=== PATIENT | female | born 1955 | race Caucasian/White ===

== ENCOUNTER 2020-09-25 13:34 | Emergency (ER) | payer MEDICAID ==
[2020-09-25 14:47] VITALS: BP 184/92; PULSE 63
--- NOTE | 2020-09-25 15:38 | EDM.PDOC ---
ED HPI GENERAL MEDICAL PROBLEM - General Chief Complaint: Back Pain or Injury Stated Complaint: BACK PAIN THAT WRAPS AROUND FRONT FOR 3 DAYS Time Seen by Provider: 09/25/20 14:44 Source of Information: Reports: Patient, RN Notes Reviewed History Limitations: Reports: No Limitations - History of Present Illness INITIAL COMMENTS - FREE TEXT/NARRATIVE: 65-year-old female presents emergency department day complaint of mid back pain on her left side she states it started a couple days ago she has not been feeling well in general no fevers no nausea vomiting no difficulty with ur ination Right Flank Pain Score (Numeric/FACES): 6 - Related Data Allergies Allergy/AdvReac Type Severity Reaction Status Date / Time No Known Allergies Allergy Verified 09/25/20 15:16 Home Meds: Home Meds Metoprolol Succinate [Toprol XL 100mg] 100 mg PO DAILY 12/26/13 [History] Cholecalciferol (Vitamin D3) [Vitamin D] 2,000 unit PO DAILY 06/22/15 [History] Docusate Sodium [DOK] 100 mg PO DAILY 06/22/15 [History] Levothyroxine [Synthroid] 88 mcg PO ACBREAKFAST 06/22/15 [History] Lisinopril/Hydrochlorothiazide [Lisinopril-Hctz 20-25 mg Tab] 2 tab PO DAILY 06/22/15 [History] cloNIDine [Catapres] 0.1 mg PO BID 06/22/15 [History] Dulaglutide [Trulicity] 1.5 mg SUBCUT Q7D 09/12/15 [History] Aspirin [Halfprin] 81 mg PO DAILY 09/25/20 [History] Insulin Glargine,Hum.Rec.Anlog [Toujeo Solostar] 60 unit SQ DAILY 09/25/20 [History] Levothyroxine Sodium [Euthyrox] 100 mcg PO DAILY 09/25/20 [History] Liraglutide [Victoza 3-Raymundo] 1.8 mg SQ DAILY 09/25/20 [History] Sulfamethoxazole/Trimethoprim [Bactrim Ds Tablet] 1 each PO BID #28 tablet 09/25/20 [Rx] amLODIPine Besylate [Amlodipine Besylate] 5 mg PO DAILY 09/25/20 [History] atorvaSTATin [Lipitor] 40 mg PO BEDTIME 09/25/20 [History] metFORMIN [Glucophage XR] 500 mg PO BIDMEALS 09/25/20 [History] Past Medical History Cardiovascular History: Reports: CAD, High Cholesterol, Hypertension, [place] Gastrointestinal History: Reports: Other (See Below) Other Gastrointestinal History: blood in stool [employer] History: Reports: Endocrine/Metabolic History: Reports: Diabetes, Type II, Hypothyroidism, IDDM, Obesity/BMI 30+, Vitamin D Deficiency Dermatologic History: Reports: Psoriasis - Past Surgical History Cardiovascular Surgical History: Reports: None GI Surgical History: Reports: None Dermatological Surgical History: Reports: None Social & Family History - Tobacco Use Tobacco Use Status *Q: Former Tobacco User Used Tobacco, but Quit: Yes Month/Year Tobacco Last Used: 14 years ED ROS GENERAL - Review of Systems Review Of Systems: See Below Constitutional: Denies: Fever, Chills Respiratory: Reports: No Symptoms Cardiovascular: Reports: No Symptoms GI/Abdominal: Reports: No Symptoms Musculoskeletal: Reports: Back Pain ED EXAM, RENAL/ - Physical Exam Exam: See Below Exam Limited By: No Limitations General Appearance: Alert, WD/WN, No Apparent Distress Respiratory/Chest: No Respiratory Distress, Lungs Clear, Normal Breath Sounds, No Accessory Muscle Use, Chest Non-Tender Cardiovascular: Regular Rate, Rhythm, No Murmur GI/Abdominal: Soft, Non-Tender Back Exam: Normal Inspection, Full Range of Motion, CVA Tenderness (L). No: CVA Tenderness (R), Paraspinal Tenderness, Vertebral Tenderness Course - Vital Signs Last Recorded V/S: Last Vital Signs Temp 97.3 F 09/25/20 15:14 Pulse 63 09/25/20 15:14 Resp 18 09/25/20 15:14 BP 184/92 H 09/25/20 15:14 Pulse Ox 98 09/25/20 15:14 - Orders/Labs/Meds Labs: Laboratory Tests 09/25/20 Range/Units 15:11 Urine Color Yellow (YELLOW) Urine Appearance Clear (CLEAR) Urine pH 5.0 (5.0-8.0) Ur Specific [place] 1.020 (1.008-1.030) Urine Protein 30 H (NEGATIVE) mg/dL Urine Glucose (UA) 500 H (NEGATIVE) mg/dL Urine Ketones Negative (NEGATIVE) mg/dL Urine Occult Blood Trace-intact H (NEGATIVE) Urine Nitrite Positive H (NEGATIVE) Urine Bilirubin Negative (NEGATIVE) Urine Urobilinogen 0.2 (0.2-1.0) EU/dL Ur Leukocyte Esterase Trace H (NEGATIVE) Urine RBC 0-5 (0-5) Urine WBC 5-10 H (0-5) Ur Epithelial Cells Occasional Amorphous Sediment Occasional Urine Bacteria Moderate Urine Mucus Occasional Urine Other See note Departure - Departure Time of Disposition: 15:37 Disposition: Home, Self-Care 01 Condition: Fair Clinical Impression: Pyelonephritis - Discharge Information Prescriptions: Sulfamethoxazole/Trimethoprim [Bactrim Ds Tablet] 1 each PO BID #28 tablet Instructions: Pyelonephritis, Adult, [id number] Referrals: PCP,None [Primary Care Provider] - Additional Instructions: Full course of antibiotics, your antibiotics have been faxed to [facility] in [place], please followup with your primary care provider in 3-5 days if not better, please call return to the emergency department with worsening of symptoms. Sepsis Event Note (ED) - Evaluation Sepsis Screening Result: No Definite Risk - Focused Exam Vital Signs: Vital Signs Temp Pulse Resp BP Pulse Ox 09/25/20 15:14 97.3 F 63 18 184/92 H 98 09/25/20 14:45 97.3 F 63 18 184/92 H 98 - Assessment/Plan Plan: Assessment Acuity = acute Site and laterality = urinary tract infection suspicious for underlying pyelonephritis Etiology = probable bacterial cause Manifestations = none Location of injury = Home Lab values = urinalysis reveals positive nitrates 5-10 WBCs consistent with pyuria Plan Elected to treat empirically Bactrim DS 1 tab p.o. twice daily x10 [id number] primary care in 3 to 5 days This note was dictated using [employer] voice recognition software please call with any questions on syntax or grammar.
== END 2020-09-25 15:48 | disposition home or self-care (01) ==
LOC: JP.ED 13:34
DX: N12 Tubulo-interstitial nephritis, not specified as acute or chronic (principal); I25.10 Atherosclerotic heart disease of native coronary artery without angina pectoris; E78.00 Pure hypercholesterolemia, unspecified; I10 Essential (primary) hypertension; I25.2 Old myocardial infarction; E11.9 Type 2 diabetes mellitus without complications; E66.9 Obesity, unspecified; Z68.30 Body mass index [BMI] 30.0-30.9, adult; Z79.82 Long term (current) use of aspirin; Z79.4 Long term (current) use of insulin
CPT/HCPCS: 81001; 87086; 87088; 87186; 99283; 99284

== ENCOUNTER 2022-07-19 15:37 | Emergency (ER) | payer MEDICAID ==
[2022-07-19] MEDS ORDERED: Sodium Chloride 0.9% 10 ML Syringe FLUSH PRN (15:39)
[2022-07-19] MEDS ORDERED: Sodium Chloride 0.9% 1,000 ML IV ONE ×2 (15:40→17:32)
[2022-07-19 16:14] LABS: ESTIMATED GFR 23 mL/min (>60)
[2022-07-19] MEDS ORDERED: Potassium Chloride 20 MEQ Tab.ER PO ONE (16:17)
[2022-07-19] MEDS ORDERED: amLODIPine 5 MG Tab PO ONE (16:20)
[2022-07-19] MEDS ORDERED: Potassium Chloride 100 ML ONE (16:30)
[2022-07-19] MEDS ORDERED: Potassium Chloride 10 MEQ in Premix Bag 1 BAG IV SCH (17:00)
[2022-07-19 17:31] LABS: CORONAVIRUS COVID-19 NAA NEGATIVE (NEGATIVE)
[2022-07-19 17:38] VITALS: BP 145/62; PULSE 54
== END 2022-07-19 18:54 | disposition home or self-care (01) ==
LOC: JP.ED 15:37
DX: E11.65 Type 2 diabetes mellitus with hyperglycemia (principal); E11.42 Type 2 diabetes mellitus with diabetic polyneuropathy; E87.6 Hypokalemia; I10 Essential (primary) hypertension; N17.9 Acute kidney failure, unspecified; I25.10 Atherosclerotic heart disease of native coronary artery without angina pectoris; I25.2 Old myocardial infarction; E78.00 Pure hypercholesterolemia, unspecified; E03.9 Hypothyroidism, unspecified; E66.9 Obesity, unspecified; Z68.41 Body mass index [BMI] 40.0-44.9, adult; Z79.82 Long term (current) use of aspirin; Z79.84 Long term (current) use of oral hypoglycemic drugs; Z79.899 Other long term (current) drug therapy; Z20.822 Contact with and (suspected) exposure to COVID-19
CPT/HCPCS: 0241U; 36415; 80053; 82009; 82800; 82947; 83605; 83735; 85025; 93005; 96361; 96365; 99285; A9270; J3480; J3490; J7030

== ENCOUNTER 2022-08-19 14:22 | Inpatient (IN) | payer MEDICAID ==
[2022-08-19] MEDS ORDERED: Sodium Chloride 0.9% 1,000 ML IV SCH ×4 (14:30→20:23)
[2022-08-19 14:38] LABS: BASOPHILS ABSOLUTE AUTO 0.05 K/uL (0.00-0.10); BASOPHILS PERCENT AUTO 0.4 % (0.1-1.3); EOSINOPHILS PERCENT AUTO 0.1 % (0.0-5.4); HEMATOCRIT 52.5 % (34.3-46.0); HEMOGLOBIN 17.2 g/dL (11.2-15.5); IMMATURE GRAN ABSOLUTE AUTO 0.09 K/uL (0.00-0.23); IMMATURE GRAN PERCENT AUTO 0.7 % (0.0-0.7); LYMPHOCYTES ABSOLUTE AUTO 1.49 K/uL (0.8-3.3); MEAN CORPUSCULAR HEMOGLOBIN 27.7 pg (31.6-35.5); MEAN CORPUSCULAR HGB CONC 32.8 g/dL (31.6-35.5); MEAN CORPUSCULAR VOLUME 84.4 fL (81.4-99.0); MONOCYTES ABSOLUTE AUTO 0.58 K/uL (0.20-0.90); MONOCYTES PERCENT AUTO 4.7 % (3.3-12.6); NEUTROPHILS ABSOLUTE AUTO 10.22 K/uL (1.0-7.6); NEUTROPHILS PERCENT AUTO 82.1 % (40.0-78.1); PLATELET COUNT,PLT 313 K/uL (130-375); RED BLOOD CELL COUNT 6.22 M/uL (3.77-5.24); WHITE BLOOD CELL COUNT,WBC 12.4 K/uL (3.2-11.0)
[2022-08-19 14:47] LABS: EOSINOPHILS ABSOLUTE AUTO 0.01 K/uL (0.00-0.40)
[2022-08-19 15:00] LABS: A/G RATIO 0.6 (1.2-2.2); ALANINE AMINOTRANSFERASE,ALT 16 U/L (12-78); ALBUMIN 3.1 g/dL (3.4-5.0); ALKALINE PHOSPHATASE 108 U/L (46-116); ASPARTATE AMNIOTRANSFERASE,AST 17 U/L (15-37); BILIRUBIN TOTAL 1.1 mg/dL (0.2-1.0); BLOOD UREA NITROGEN,BUN 33 mg/dL (7-18); CALCIUM 9.6 mg/dL (8.5-10.1); CARBON DIOXIDE,CO2 31 mmol/L (21-32); CHLORIDE,CL 90 mmol/L (100-108); CREATININE 2.2 mg/dL (0.6-1.0); EST CRCL DRUG DOSING (CG) 20.43 mL/min; ESTIMATED GFR 24 mL/min (>60); POTASSIUM,K 3.6 mmol/L (3.6-5.2); PROTEIN TOTAL,TP 8.2 g/dL (6.4-8.2); SODIUM,NA 132 mmol/L (140-148)
[2022-08-19 15:01] LABS: ANION GAP 14.6 mmol/L (5.0-14.0)
[2022-08-19] MEDS ORDERED: Ondansetron 4 MG/2 ML SDV IVPUSH ONE ×2 (15:01→18:03)
[2022-08-19 15:02] LABS: GLUCOSE RANDOM 450 mg/dL (74-106)
[2022-08-19 15:39] LABS: APPEARANCE,URINE TURBID (CLEAR); BILIRUBIN,URINE NEGATIVE (NEGATIVE); COLOR,URINE YELLOW (YELLOW); GLUCOSE,URINE 500 mg/dL (NEGATIVE); KETONES,URINE TRACE mg/dL (NEGATIVE); LEUKOCYTE ESTERASE,URINE SMALL (NEGATIVE); NITRITE,URINE POSITIVE (NEGATIVE); OCCULT BLOOD,URINE SMALL (NEGATIVE); PROTEIN,URINE >=300 mg/dL (NEGATIVE); UROBILINOGEN,URINE 0.2 EU/dL (0.2-1.0)
[2022-08-19] MEDS ORDERED: Insulin NPH HUM/REG Insulin HM 100 UNIT/ML 3 ML Vial SQ ONE (15:44)
[2022-08-19] MEDS ORDERED: Glucagon,Human Recombinant 1 MG Vial IM PRN (15:44)
[2022-08-19] MEDS ORDERED: 50% Dextrose in Water 50 ML Syringe IVPUSH PRN (15:44)
[2022-08-19 15:46] LABS: RBC,URINE 0-5 (0-5); WBC,URINE PACKED (0-5)
[2022-08-19 15:47] LABS: BACTERIA,URINE MANY
[2022-08-19] MEDS ORDERED: Acetaminophen 325 MG Tab PO ONE (15:47)
[2022-08-19 15:48] LABS: EPITHELIAL CELLS,URINE FEW; MUCUS,URINE RARE
[2022-08-19] MEDS ORDERED: cefTRIAXone 2 GM in Sodium Chloride 0.9% 50 ML IV ONE (15:54)
[2022-08-19] MEDS ORDERED: amLODIPine 5 MG Tab PO ONE (15:58)
[2022-08-19] MEDS ORDERED: Metoprolol Tartrate 50 MG Tab PO ONE (15:58)
[2022-08-19 16:14] LABS: LACTIC ACID 4.2 mmol/L (0.4-2.0)
[2022-08-19] MEDS ORDERED: Ondansetron 4 MG/2 ML SDV IV PRN (20:23)
[2022-08-19] MEDS ORDERED: Enoxaparin 40 MG/0.4 ML Syringe SUBCUT SCH (20:23)
[2022-08-19] MEDS ORDERED: Ondansetron 4 MG Tab.DIS PO PRN (20:23)
[2022-08-19] MEDS ORDERED: Melatonin 3 MG Tab PO PRN (20:23)
[2022-08-19] MEDS ORDERED: Magnesium Hydroxide 400 MG/5 ML Susp 30 ML Cup PO PRN (20:23)
[2022-08-19] MEDS: Enoxaparin 30 MG/0.3 ML Syringe SUBCUT SCH (21:03)
[2022-08-19] MEDS: Insulin Lispro 100 Unit/ML 3 ML KwikPen SUBCUT SCH (21:06)
[2022-08-19] MEDS: Lactobacillus Rhamnosus GG (Probiotic) Cap PO SCH (21:11)
[2022-08-19] MEDS ORDERED: Non-Formulary Medication 1 Each (Metformin [Glucophage Xr] 500 MG Tab.Er) PO SCH (21:30)
[2022-08-19] MEDS ORDERED: Metoclopramide 10 MG/2 ML SDV IVPUSH PRN (21:51)
[2022-08-19] MEDS: Insulin Glargine,Human Rec. Analog 100 Units/ML 3 ML Pen SUBCUT SCH (22:21)
[2022-08-19] MEDS: cloNIDine 0.1 MG Tab PO SCH (23:33)
[2022-08-20 05:21] LABS: HEMATOCRIT 43.5 % (34.3-46.0); HEMOGLOBIN 14.4 g/dL (11.2-15.5); MEAN CORPUSCULAR HEMOGLOBIN 27.8 pg (31.6-35.5); MEAN CORPUSCULAR HGB CONC 33.1 g/dL (31.6-35.5); RED BLOOD CELL COUNT 5.18 M/uL (3.77-5.24); WHITE BLOOD CELL COUNT,WBC 11.1 K/uL (3.2-11.0)
[2022-08-20 05:38] LABS: CALCIUM 8.8 mg/dL (8.5-10.1); CREATININE 1.6 mg/dL (0.6-1.0); EST CRCL DRUG DOSING (CG) 28.09 mL/min
[2022-08-20 05:52] LABS: ANION GAP 8.7 mmol/L (5.0-14.0); POTASSIUM,K 2.7 mmol/L (3.6-5.2)
[2022-08-20] MEDS ORDERED: Potassium Chloride 20 MEQ Tab.ER PO ONE (05:57)
[2022-08-20] MEDS ORDERED: Potassium Chloride 10 MEQ in Premix Bag 3 BAG IV ONE (05:57)
[2022-08-20] MEDS: Magnesium Sulfate/Water 2 GM in Premix Bag 1 BAG IV SCH ×2 (06:34→13:33)
[2022-08-20] MEDS: Potassium Chloride 10 MEQ in Premix Bag 1 BAG IV SCH ×3 (06:43→09:17)
[2022-08-20] MEDS: Acetaminophen 325 MG Tab PO PRN ×2 (06:50→21:37)
[2022-08-20] MEDS: Insulin Lispro 100 Unit/ML 3 ML KwikPen SUBCUT SCH ×4 (07:30→21:35)
[2022-08-20] MEDS: Levothyroxine 25 MCG Tab PO SCH (07:53)
[2022-08-20] MEDS: Levothyroxine 100 MCG Tab PO SCH (07:53)
[2022-08-20] MEDS ORDERED: Levothyroxine 100 MCG Tab PO SCH (09:00)
[2022-08-20] MEDS ORDERED: Lisinopril 20 MG Tab PO SCH (09:00)
[2022-08-20] MEDS: Docusate Sodium 100 MG Cap PO SCH (09:30)
[2022-08-20] MEDS: cloNIDine 0.1 MG Tab PO SCH ×2 (09:30→21:35)
[2022-08-20] MEDS: amLODIPine 5 MG Tab PO SCH (09:31)
[2022-08-20] MEDS: Hydrochlorothiazide 25 MG Tab PO SCH (09:31)
[2022-08-20] MEDS: Lactobacillus Rhamnosus GG (Probiotic) Cap PO SCH ×2 (09:31→21:38)
[2022-08-20] MEDS: Aspirin 81 MG Tab.EC PO SCH (09:31)
[2022-08-20] MEDS: Metoprolol Succinate 50 MG Tab.ER PO SCH (09:32)
[2022-08-20] MEDS ORDERED: cefTRIAXone 1 GM in Sodium Chloride 0.9% 50 ML IV SCH (16:00)
[2022-08-20] MEDS ORDERED: atorvaSTATin 20 MG Tab PO SCH (21:00)
[2022-08-20] MEDS: Insulin Glargine,Human Rec. Analog 100 Units/ML 3 ML Pen SUBCUT SCH (21:34)
[2022-08-20] MEDS: Enoxaparin 30 MG/0.3 ML Syringe SUBCUT SCH (21:35)
[2022-08-21 04:19] LABS: HEMATOCRIT 39.4 % (34.3-46.0); HEMOGLOBIN 13.3 g/dL (11.2-15.5); MEAN CORPUSCULAR HEMOGLOBIN 27.8 pg (31.6-35.5); MEAN CORPUSCULAR HGB CONC 33.8 g/dL (31.6-35.5); MEAN CORPUSCULAR VOLUME 82.3 fL (81.4-99.0); RED BLOOD CELL COUNT 4.79 M/uL (3.77-5.24); WHITE BLOOD CELL COUNT,WBC 8.5 K/uL (3.2-11.0)
[2022-08-21 04:36] LABS: CALCIUM 8.5 mg/dL (8.5-10.1); CREATININE 1.5 mg/dL (0.6-1.0); EST CRCL DRUG DOSING (CG) 29.97 mL/min; POTASSIUM,K 3.3 mmol/L (3.6-5.2)
[2022-08-21 05:21] LABS: ANION GAP 11.3 mmol/L (5.0-14.0)
[2022-08-21] MEDS: Acetaminophen 325 MG Tab PO PRN (07:28)
[2022-08-21] MEDS: Levothyroxine 25 MCG Tab PO SCH (07:29)
[2022-08-21] MEDS: Levothyroxine 100 MCG Tab PO SCH (07:29)
[2022-08-21] MEDS: Insulin Lispro 100 Unit/ML 3 ML KwikPen SUBCUT SCH ×2 (07:31→11:44)
[2022-08-21] MEDS ORDERED: metFORMIN 500 MG Tab PO SCH (08:00)
[2022-08-21] MEDS ORDERED: Lisinopril 20 MG Tab PO SCH (09:00)
[2022-08-21] MEDS ORDERED: Potassium Chloride 20 MEQ Tab.ER PO ONE (09:30)
[2022-08-21] MEDS: cloNIDine 0.1 MG Tab PO SCH (09:38)
[2022-08-21] MEDS: Lactobacillus Rhamnosus GG (Probiotic) Cap PO SCH (09:39)
[2022-08-21] MEDS: Docusate Sodium 100 MG Cap PO SCH (09:39)
[2022-08-21] MEDS: Aspirin 81 MG Tab.EC PO SCH (09:39)
[2022-08-21] MEDS: Hydrochlorothiazide 25 MG Tab PO SCH (09:40)
[2022-08-21] MEDS: amLODIPine 5 MG Tab PO SCH (09:40)
[2022-08-21] MEDS: Metoprolol Succinate 50 MG Tab.ER PO SCH (09:40)
[2022-08-21 10:39] VITALS: BP 164/71; PULSE 62
[2022-08-25] MEDS ORDERED: Liraglutide (rDNA Origin) 0.6 MG/0.1 ML 3 ML Pen SUBCUT SCH (09:00)
== END 2022-08-21 14:20 | disposition home health service (06) | DRG 638 ==
LOC: JP.ED 14:22 → JP.MS 19:41
PROVIDERS: ADMIT Hospitalist; ATTEND Internal Medicine
DX: E11.65 Type 2 diabetes mellitus with hyperglycemia (principal); N17.9 Acute kidney failure, unspecified; N30.00 Acute cystitis without hematuria; N18.32 Chronic kidney disease, stage 3b; E11.22 Type 2 diabetes mellitus with diabetic chronic kidney disease; B96.20 Unspecified Escherichia coli [E. coli] as the cause of diseases classified elsewhere; Z91.148 Patient's other noncompliance with medication regimen for other reason; Z20.822 Contact with and (suspected) exposure to COVID-19; E87.6 Hypokalemia; Z79.82 Long term (current) use of aspirin; Z79.4 Long term (current) use of insulin; Z79.899 Other long term (current) drug therapy; E03.9 Hypothyroidism, unspecified; I25.10 Atherosclerotic heart disease of native coronary artery without angina pectoris; E78.00 Pure hypercholesterolemia, unspecified; I12.9 Hypertensive chronic kidney disease with stage 1 through stage 4 chronic kidney disease, or unspecified chronic kidney disease; E66.9 Obesity, unspecified; E78.5 Hyperlipidemia, unspecified; E86.0 Dehydration; Z98.890 Other specified postprocedural states; I25.2 Old myocardial infarction; Z87.891 Personal history of nicotine dependence
CPT/HCPCS: 36415; 80048; 80053; 81001; 82800; 82947; 83605; 83735; 84132; 84443; 85025; 85027; 87040; 87086; 87088; 87186; 96361; 96365; 96367; 96375; 96376; 97161-GP; 99222; 99232; 99238; 99285; 99285-25; A9270-GY; J0696; J1650; J1815; J1815-GY; J2405; J2765; J3475; J3480; J3490; J7030; U0002

== ENCOUNTER 2022-12-27 03:41 | Emergency (ER) | payer MEDICARE, MEDICAID ==
[2022-12-27] MEDS ORDERED: Sodium Chloride 0.9% 10 ML Syringe FLUSH PRN (03:48)
[2022-12-27 04:00] LABS: BASOPHILS ABSOLUTE AUTO 0.08 K/uL (0.00-0.10); EOSINOPHILS ABSOLUTE AUTO 0.33 K/uL (0.00-0.40); EOSINOPHILS PERCENT AUTO 3.9 % (0.0-5.4); HEMATOCRIT 40.6 % (34.3-46.0); HEMOGLOBIN 13.1 g/dL (11.2-15.5); IMMATURE GRAN ABSOLUTE AUTO 0.03 K/uL (0.00-0.23); IMMATURE GRAN PERCENT AUTO 0.4 % (0.0-0.7); LYMPHOCYTES ABSOLUTE AUTO 1.62 K/uL (0.8-3.3); LYMPHOCYTES PERCENT AUTO 19.3 % (11.4-47.7); MEAN CORPUSCULAR HEMOGLOBIN 27.5 pg (31.6-35.5); MEAN CORPUSCULAR HGB CONC 32.3 g/dL (31.6-35.5); MEAN CORPUSCULAR VOLUME 85.1 fL (81.4-99.0); MONOCYTES ABSOLUTE AUTO 0.54 K/uL (0.20-0.90); MONOCYTES PERCENT AUTO 6.4 % (3.3-12.6); NEUTROPHILS ABSOLUTE AUTO 5.81 K/uL (1.0-7.6); PLATELET COUNT,PLT 231 K/uL (130-375); RED BLOOD CELL COUNT 4.77 M/uL (3.77-5.24); WHITE BLOOD CELL COUNT,WBC 8.4 K/uL (3.2-11.0)
[2022-12-27] MEDS ORDERED: Dextrose 5%-Lactated Ringers 1,000 ML IV SCH (04:00)
[2022-12-27 04:15] LABS: BLOOD UREA NITROGEN,BUN 62 mg/dL (7-18); CALCIUM 9.5 mg/dL (8.5-10.1); CARBON DIOXIDE,CO2 27 mmol/L (21-32); CHLORIDE,CL 101 mmol/L (100-108); CREATININE 1.9 mg/dL (0.6-1.0); ESTIMATED GFR 29 mL/min (>60); GLUCOSE RANDOM 103 mg/dL (74-106); SODIUM,NA 136 mmol/L (140-148)
[2022-12-27 06:57] VITALS: BP 170/74; PULSE 61
== END 2022-12-27 08:19 | disposition home or self-care (01) ==
LOC: JP.ED 03:41
DX: E11.65 Type 2 diabetes mellitus with hyperglycemia (principal); E66.9 Obesity, unspecified; I25.2 Old myocardial infarction; I10 Essential (primary) hypertension; I25.10 Atherosclerotic heart disease of native coronary artery without angina pectoris
CPT/HCPCS: 36415; 80048; 82947; 83605; 85025; 96360; 99285; J3490; J7121; 99284

== ENCOUNTER 2023-03-09 11:19 | Emergency (ER) | payer MEDICARE, MEDICAID ==
[2023-03-09 11:46] LABS: BASOPHILS ABSOLUTE AUTO 0.09 K/uL (0.00-0.10); BASOPHILS PERCENT AUTO 0.5 % (0.1-1.3); HEMATOCRIT 47.9 % (34.3-46.0); HEMOGLOBIN 15.1 g/dL (11.2-15.5); IMMATURE GRAN ABSOLUTE AUTO 0.09 K/uL (0.00-0.23); IMMATURE GRAN PERCENT AUTO 0.5 % (0.0-0.7); LYMPHOCYTES ABSOLUTE AUTO 1.43 K/uL (0.8-3.3); LYMPHOCYTES PERCENT AUTO 8.6 % (11.4-47.7); MEAN CORPUSCULAR HEMOGLOBIN 27.7 pg (31.6-35.5); MEAN CORPUSCULAR HGB CONC 31.5 g/dL (31.6-35.5); MEAN CORPUSCULAR VOLUME 87.7 fL (81.4-99.0); MONOCYTES ABSOLUTE AUTO 0.37 K/uL (0.20-0.90); MONOCYTES PERCENT AUTO 2.2 % (3.3-12.6); NEUTROPHILS ABSOLUTE AUTO 14.66 K/uL (1.0-7.6); NEUTROPHILS PERCENT AUTO 88.2 % (40.0-78.1); PLATELET COUNT,PLT 302 K/uL (130-375); RED BLOOD CELL COUNT 5.46 M/uL (3.77-5.24); WHITE BLOOD CELL COUNT,WBC 16.6 K/uL (3.2-11.0)
[2023-03-09] MEDS ORDERED: Sodium Chloride 0.9% 1,000 ML IV ONE ×3 (11:51→15:02)
[2023-03-09 12:04] LABS: APPEARANCE,URINE CLEAR (CLEAR); BILIRUBIN,URINE NEGATIVE (NEGATIVE); COLOR,URINE YELLOW (YELLOW); GLUCOSE,URINE NEGATIVE (NEGATIVE); KETONES,URINE 15 mg/dL (NEGATIVE); LEUKOCYTE ESTERASE,URINE SMALL (NEGATIVE); NITRITE,URINE NEGATIVE (NEGATIVE); OCCULT BLOOD,URINE SMALL (NEGATIVE); PH,URINE 5.5 (5.0-8.0); PROTEIN,URINE >=300 mg/dL (NEGATIVE); UROBILINOGEN,URINE 0.2 EU/dL (0.2-1.0)
[2023-03-09 12:06] LABS: BACTERIA,URINE MANY; EPITHELIAL CELLS,URINE NOT SEEN; MUCUS,URINE NOT SEEN; WBC,URINE 50-75 (0-5)
[2023-03-09 12:07] LABS: ALANINE AMINOTRANSFERASE,ALT 11 U/L (12-78); ALBUMIN 3.1 g/dL (3.4-5.0); ALKALINE PHOSPHATASE 116 U/L (46-116); ASPARTATE AMNIOTRANSFERASE,AST 27 U/L (15-37); BILIRUBIN TOTAL 0.6 mg/dL (0.2-1.0); C-REACTIVE PROTEIN 2.46 mg/dL (0.0-0.3); CALCIUM 9.3 mg/dL (8.5-10.1); CHLORIDE,CL 92 mmol/L (100-108); ESTIMATED GFR 4 mL/min (>60); GLUCOSE RANDOM 149 mg/dL (74-106); PROTEIN TOTAL,TP 7.9 g/dL (6.4-8.2); SODIUM,NA 140 mmol/L (140-148)
[2023-03-09] MEDS ORDERED: OLANZapine 5 MG Tab PO ONE (12:17)
[2023-03-09] MEDS ORDERED: hydrALAZINE 20 MG/ML SDV IVPUSH ONE (12:21)
[2023-03-09 12:30] LABS: A/G RATIO 0.7 (1.2-2.2)
[2023-03-09] MEDS ORDERED: OLANZapine 10 MG Vial IM ONE (12:30)
[2023-03-09] MEDS ORDERED: Cefepime 2 GM in Sodium Chloride 0.9% 50 ML IV ONE (12:32)
[2023-03-09] MEDS ORDERED: metroNIDAZOLE/Normal Saline 500 MG in Premix Bag 1 BAG IV ONE (12:32)
[2023-03-09 12:37] LABS: CARBON DIOXIDE,CO2 6 mmol/L (21-32)
[2023-03-09 12:38] LABS: BLOOD UREA NITROGEN,BUN 95 mg/dL (7-18); CREATININE 10.2 mg/dL (0.6-1.0)
[2023-03-09 13:01] LABS: BASE EXCESS VENOUS -26 mm/L; BICARBONATE,VENOUS 5.2 mmol/L; PCO2 VENOUS 21.9 mm/Hg; PO2 VENOUS 78 mm/Hg
[2023-03-09 13:24] LABS: CORONAVIRUS COVID-19 NAA NEGATIVE (NEGATIVE); INFLUENZA A NAA NEGATIVE (NEGATIVE); INFLUENZA B NAA NEGATIVE (NEGATIVE); RESPIRATORY SYNCYTIAL VIR NAA NEGATIVE (NEGATIVE)
[2023-03-09] MEDS ORDERED: Sodium Bicarbonate 8.4% 50 MEQ/50 ML Syringe IVPUSH ONE ×3 (14:18→16:01)
[2023-03-09] MEDS ORDERED: Norepinephrine Bit/D5W Premix 250 ML ONE (14:35)
[2023-03-09] MEDS ORDERED: Propofol 200 MG/20 ML SDV ONE (14:40)
[2023-03-09] MEDS ORDERED: propofoL 100 ML ONE (14:43)
[2023-03-09] MEDS ORDERED: Norepinephrine Bit/D5W Premix 4 MG in Premix Bag 1 BAG IV SCH (14:52)
[2023-03-09] MEDS ORDERED: propofoL 100 ML IV SCH (15:00)
[2023-03-09 15:21] LABS: METHEMOGLOBIN 1.1 %; O2 SATURATION ARTERIAL 97.6 % (95.0-98.0); OXYHEMOGLOBIN 96.5 %; TOTAL HEMOGLOBIN 13.4 g/dL (12.0-16.0)
[2023-03-09 15:35] LABS: BASE EXCESS ARTERIAL 32.3 mm/L; BICARBONATE,ARTERIAL 2.6 mmol/L (22.0-26.0); CARBOXYHEMOGLOBIN < 0.5 % (0.0-1.6)
[2023-03-09 16:05] VITALS: BP 104/53; PULSE 105
== END 2023-03-09 16:48 | disposition other institution (70) ==
LOC: JP.ED 11:19
DX: A41.9 Sepsis, unspecified organism (principal); I21.4 Non-ST elevation (NSTEMI) myocardial infarction; I10 Essential (primary) hypertension; E78.00 Pure hypercholesterolemia, unspecified; I25.10 Atherosclerotic heart disease of native coronary artery without angina pectoris; E11.9 Type 2 diabetes mellitus without complications; Z86.16 Personal history of COVID-19; Z20.822 Contact with and (suspected) exposure to COVID-19; Z79.82 Long term (current) use of aspirin; Z79.84 Long term (current) use of oral hypoglycemic drugs; Z79.4 Long term (current) use of insulin; Z79.899 Other long term (current) drug therapy
CPT/HCPCS: 0241U; 31500; 36415; 36600; 70450; 71045; 71250; 74176; 80053; 81001; 82550; 82803; 83605; 84484; 85025; 86140; 87040; 87077; 87186; 93005; 96361; 96365; 96366; 96367; 96368; 96372; 96375; 99285; J0360; J0692; J2405; J2704; J3370; J3490; J7030; J7050